=== PATIENT | female | born 1995 ===

== ENCOUNTER → 2017-03-10 | Outpatient (CLI) | payer BC ==
--- NOTE | 2017-03-10 08:13 | DIAGNOSTIC IMAGING REPORT ---
LEFT ANKLE 3 VIEWS CLINICAL HISTORY: Left ankle pain. Recent injury. FINDINGS: 3 views of the left ankle are obtained. No prior studies are available for comparison at the time of dictation. The skeletal structures are well mineralized. No fracture is seen. The ankle mortise is intact. There is no joint effusion. The overlying soft tissues are within normal limits. IMPRESSION: Unremarkable radiographic assessment of the left ankle. Electronically signed by: Maurice Muniz M.D. 03/10/2017 8:11 AM Dictated Date/Time: 03/10/2017 8:11 AM
--- NOTE | 2017-03-10 08:14 | DIAGNOSTIC IMAGING REPORT ---
LEFT HEEL 2 VIEWS CLINICAL HISTORY: Left heel pain. FINDINGS: AP and lateral views of the left heel are obtained. No prior studies are available for comparison at the time of dictation. The skeletal structures are well mineralized. There is no radiographic evidence of calcaneal fracture. The ankle joint appears maintained. The overlying soft tissues are within normal limits. IMPRESSION: Unremarkable radiographic assessment of the left heel. Electronically signed by: Maurice Muniz M.D. 03/10/2017 8:12 AM Dictated Date/Time: 03/10/2017 8:12 AM
== END | disposition home or self-care (01) ==
LOC: C.RDSM 08:00
PROVIDERS: ATTEND Internal Medicine
DX: M25.572 Pain in left ankle and joints of left foot (principal)